=== PATIENT | male | born 1935 | race Caucasian/White ===

== ENCOUNTER 2016-05-03 11:09 | Outpatient (CLI) | payer MEDICARE, OTHER ==
[2015-03-06 11:40] VITALS: BP 110/55
--- NOTE | 2016-05-03 15:02 | Diagnostic Imaging Report ---
[facility] [address] [facility].[address] [address] Report Submission Date: May 03, 2016 11:42:24 AM RADIATION PHYSICIST Patient Study Name: YESI MILLIGAN Date: May 03, 2016 11:20:00 AM RADIATION PHYSICIST Modality Type: CR Gender: M Description: PELVIS : 31 Institution: [facility] Physician MARYELLEN KILLIAN - WAGNER Bilateral hips -two views CLINICAL HISTORY: Fall yesterday. Right groin pain. FINDINGS: Examination right hip in AP and frog-leg lateral views demonstrates impacted transcervical fracture of the right femur. There is mild narrowing of the hip joint with osteophyte formation. Examination of the left hip in AP and frog-leg lateral views demonstrates degenerative changes with slight narrowing of the hip joint and osteophyte formation. There is no evident fracture. IMPRESSION: Impacted transcervical fracture of the right femur. Degenerative changes in the hips. Electronically signed on May 03, 2016 11:42:24 AM RADIATION PHYSICIST by: Bob PEREZ
== END 2016-05-03 11:10 ==
LOC: RAD 11:09
PROVIDERS: ATTEND Family Medicine
DX: R10.30 Lower abdominal pain, unspecified (principal)
CPT/HCPCS: 73521

== ENCOUNTER 2016-07-11 10:10 | Inpatient (IN) | payer MEDICARE, OTHER ==
[2016-07-11 16:09] VITALS: BMI 27.9
--- NOTE | 2016-07-11 17:47 | History and Physical Report ---
History of Present Illnes - History of Present Illness Reason for Visit: Right femur fracture History of Present Illness: This is an 80 year old male admitted for skilled stay after a fall outside his home with a resultant right femur fracture. Had had an ORIF by Dr. Hutchison and was originally transferred to the [facility] for therapy, but he was discharge when he says his thought he would be fine at home. He has been having therapy at [facility] and they thought that he needed more therapy as he was not making progress with the therapy he could attend as an outpatient and recommended that he come in for inpatient therapy. 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 - Past Surgical History Past Surgical History: CABG, Cataract Removal, Other (Right MCA lysis (TPA), ORIF right femur) - Past Social History Smoke: No Alcohol: None Drugs: None Lives: With Family ( Ginny), Other (5 children, only one lives locally) - Health Maintenance Health Maintenance: Cholesterol Influenza Vaccine: Current for this Influenza Season Pneumonia Vaccine: Yes (Two years ago) Resuscitation Status: Resusciation Status Resuscitation Status Do Not Resuscitate - Unable to Obtain History Unable to Obtain: No Review of Systems - Review of Systems Constitutional: negative: Fever, Chills Eyes: pain (right femur, improving) ENT: negative: Ear Pain, Ear Discharge, Nose Pain Respiratory: negative: Cough Cardiovascular: negative: Chest Pain Gastrointestinal: negative: Nausea, Vomiting Genitourinary: negative: Dysuria Musculoskeletal: negative: Neck Pain Skin: negative: Rash Neurological: Weakness, Incoordination - Medications/Allergies Allergies/Adverse Reactions: Allergies Allergy/AdvReac Type Severity Reaction Status Date / Time No Known Allergies Allergy Verified 03/06/15 10:52 Exam - Exam Vital Signs: Vital Signs (72 hours) 07/11/16 07/11/16 11:53 15:53 Temperature 97.5 F L 97.7 F Pulse Rate [ 51 L 55 L Right] Respiratory 16 16 Rate Blood Pressure 106/59 110/70 [Left Arm] O2 Sat by Pulse 95 96 Oximetry General: Alert, Oriented to Person, Oriented to Place, Oriented to Time, Cooperative, No acute distress HEENT: Atraumatic, PERRLA, EOMI, Mouth Mucous membr. moist/[place] Neck: Stridor, Rigidity Lungs: Clear to auscultation, Normal air movement Cardiovascular: Irregularly Irregular Murmur: No: Systolic Murmur Abdomen: Soft Genitourinary: No: Right Inguinal Hernia, Left Inguinal Hernia Male Genitourinary: No: Scrotal Edema Female Genitourinary: No: Other Integumentary: Normal, [place], Warm Extremities: Other Neurological: Left Sided Weakness Psych/Mental Status: Mental status NL Assessment/Plan - Assessment/Plan (1) Right femoral fracture Status: Acute Current Visit: Yes Qualifiers: Encounter type: subsequent encounter Femur location: shaft Fracture type : closed Fracture morphology: other fracture Fracture healing: with routine healing Qualified Code(s): S72.391D - Other fracture of shaft of right femur, subsequent encounter for closed fracture with routine healing Assessment: PT/OT (2) Atrial fibrillation Status: Acute Current Visit: Yes Assessment: Chronic, on Eliquis (3) CAD (coronary artery disease) Status: Acute Current Visit: Yes Qualifiers: Coronary Disease-Associated Artery/Lesion type: bypass graft [place] vs. transplanted heart: [place] heart Associated angina: without angina Qualified Code(s): I25.810 - Atherosclerosis of coronary artery bypass graft(s) without angina pectoris Assessment: No current ischemia (4) BPH (benign prostatic hyperplasia) Status: Acute Current Visit: Yes Assessment: Stable on Flomax (5) Constipation Status: Acute Current Visit: Yes Assessment: Continue Miralax (6) Hypertension Status: Acute Current Visit: Yes (7) Hyperlipidemia Status: Acute Current Visit: Yes Qualifiers: Hyperlipidemia type: pure hypercholesterolemia Qualified Code(s): E78.00 - Pure hypercholesterolemia, unspecified; E78.0 - Pure hypercholesterolemia Assessment: Continue Atorvastatin VTE Assessment - RISK FACTOR SCORE VTE RISK FACTOR SCORES: AGE OVER 60 YEARS, ANTICIPATED BED CONFINEMENT OR IMMOBILIZATION > 24 HOURS - RISK VTE MODERATE RISK: SCORE OF 2 (RISK PROXIMAL DVT 2-4%) PROPHYAXIS NEEDED (On Eliquis/LUNA hose)
[2016-07-11] MEDS ORDERED: NITROGLYCERIN 0.4 MG TAB.SUBL SL PRN (19:14)
[2016-07-11] MEDS ORDERED: DOCUSATE SODIUM 100 MG CAPSULE PO PRN (19:14)
[2016-07-11] MEDS: APIXABAN 2.5 MG TABLET PO SCH (20:03)
[2016-07-11] MEDS: GABAPENTIN 300 MG CAPSULE PO SCH (20:04)
[2016-07-11] MEDS: ATORVASTATIN CALCIUM 80 MG TABLET PO SCH (20:04)
[2016-07-11] MEDS: HYDROcodone /APAP 5/325 1 EACH TABLET PO PRN (20:05)
[2016-07-11] MEDS: FINASTERIDE 5 MG TABLET PO SCH (20:05)
[2016-07-11] MEDS: PATIENT OWN MED 1 EACH EACH OP SCH (20:05)
[2016-07-12 06:50] LABS: EOSINOPHILS % 6.5 % (0.0-6.8); MEAN CORPUSCULAR HEMOGLOBIN 31.6 pg (28.0-34.0); MEAN CORPUSCULAR VOLUME 94.3 fl (80.0-100.0); MONOCYTES % 7.3 % (0.0-11.0); NEUTROPHILS # 2.8 # k/uL (1.4-7.7)
[2016-07-12 07:22] LABS: eGFR (African) > 60; eGFR (Non-African) > 60
[2016-07-12] MEDS: DILTIAZEM HCL 120 MG CAP.ER.24H PO SCH (09:21)
[2016-07-12] MEDS: LORATADINE 10 MG TABLET PO SCH (09:21)
[2016-07-12] MEDS: CYANOCOBALAMIN 1,000 MCG TABLET PO SCH (09:22)
[2016-07-12] MEDS: FLUTICASONE PROPIONATE 120 SPRAY/16 GR BOTTLE NS SCH (09:22)
[2016-07-12] MEDS: GABAPENTIN 300 MG CAPSULE PO SCH ×2 (09:22→20:15)
[2016-07-12] MEDS: APIXABAN 2.5 MG TABLET PO SCH ×2 (09:22→20:15)
[2016-07-12] MEDS: BISOPROLOL 5 MG PO SCH (09:23)
[2016-07-12] MEDS: PATIENT OWN MED 1 EACH EACH OP SCH ×2 (09:23→20:21)
[2016-07-12] MEDS: CHOLECALCIFEROL 1,000 UNIT TABLET PO SCH (09:23)
[2016-07-12] MEDS: POLYETHYLENE GLYCOL 3350 17 GM POWD.PACK PO SCH (12:43)
[2016-07-12] MEDS: TAMSULOSIN HCL 0.4 MG CAP.ER.24H PO SCH (18:38)
[2016-07-12] MEDS: ATORVASTATIN CALCIUM 80 MG TABLET PO SCH (20:15)
[2016-07-12] MEDS: FINASTERIDE 5 MG TABLET PO SCH (20:15)
[2016-07-12] MEDS: HYDROcodone /APAP 5/325 1 EACH TABLET PO PRN (20:19)
[2016-07-13] MEDS: APIXABAN 2.5 MG TABLET PO SCH ×2 (08:52→19:40)
[2016-07-13] MEDS: CHOLECALCIFEROL 1,000 UNIT TABLET PO SCH (08:52)
[2016-07-13] MEDS: CYANOCOBALAMIN 1,000 MCG TABLET PO SCH (08:53)
[2016-07-13] MEDS: DILTIAZEM HCL 120 MG CAP.ER.24H PO SCH (08:53)
[2016-07-13] MEDS: GABAPENTIN 300 MG CAPSULE PO SCH ×2 (08:53→19:41)
[2016-07-13] MEDS: FLUTICASONE PROPIONATE 120 SPRAY/16 GR BOTTLE NS SCH (08:53)
[2016-07-13] MEDS: PATIENT OWN MED 1 EACH EACH OP SCH ×2 (08:54→19:41)
[2016-07-13] MEDS: BISOPROLOL 5 MG PO SCH (08:58)
[2016-07-13] MEDS: LORATADINE 10 MG TABLET PO SCH (08:58)
[2016-07-13] MEDS: HYDROcodone /APAP 5/325 1 EACH TABLET PO PRN (10:30)
[2016-07-13] MEDS: POLYETHYLENE GLYCOL 3350 17 GM POWD.PACK PO SCH (10:45)
[2016-07-13] MEDS: TAMSULOSIN HCL 0.4 MG CAP.ER.24H PO SCH (17:12)
[2016-07-13] MEDS: ATORVASTATIN CALCIUM 80 MG TABLET PO SCH (19:41)
[2016-07-13] MEDS: FINASTERIDE 5 MG TABLET PO SCH (19:41)
[2016-07-14] MEDS: LORATADINE 10 MG TABLET PO SCH (08:09)
[2016-07-14] MEDS: APIXABAN 2.5 MG TABLET PO SCH ×2 (08:09→19:51)
[2016-07-14] MEDS: CHOLECALCIFEROL 1,000 UNIT TABLET PO SCH (08:09)
[2016-07-14] MEDS: CYANOCOBALAMIN 1,000 MCG TABLET PO SCH (08:09)
[2016-07-14] MEDS: DILTIAZEM HCL 120 MG CAP.ER.24H PO SCH (08:09)
[2016-07-14] MEDS: GABAPENTIN 300 MG CAPSULE PO SCH ×2 (08:09→19:52)
[2016-07-14] MEDS: FLUTICASONE PROPIONATE 120 SPRAY/16 GR BOTTLE NS SCH (08:09)
[2016-07-14] MEDS: PATIENT OWN MED 1 EACH EACH OP SCH ×2 (08:10→20:17)
[2016-07-14] MEDS: POLYETHYLENE GLYCOL 3350 17 GM POWD.PACK PO SCH (11:09)
[2016-07-14] MEDS: BISOPROLOL 5 MG PO SCH (12:40)
[2016-07-14] MEDS: TAMSULOSIN HCL 0.4 MG CAP.ER.24H PO SCH (17:19)
[2016-07-14] MEDS: ATORVASTATIN CALCIUM 80 MG TABLET PO SCH (19:51)
[2016-07-14] MEDS: FINASTERIDE 5 MG TABLET PO SCH (19:52)
[2016-07-14] MEDS: HYDROcodone /APAP 5/325 1 EACH TABLET PO PRN (20:55)
[2016-07-15] MEDS: CHOLECALCIFEROL 1,000 UNIT TABLET PO SCH (09:03)
[2016-07-15] MEDS: CYANOCOBALAMIN 1,000 MCG TABLET PO SCH (09:03)
[2016-07-15] MEDS: GABAPENTIN 300 MG CAPSULE PO SCH ×2 (09:03→20:05)
[2016-07-15] MEDS: LORATADINE 10 MG TABLET PO SCH (09:03)
[2016-07-15] MEDS: FLUTICASONE PROPIONATE 120 SPRAY/16 GR BOTTLE NS SCH (09:04)
[2016-07-15] MEDS: APIXABAN 2.5 MG TABLET PO SCH ×2 (09:04→20:06)
[2016-07-15] MEDS: DILTIAZEM HCL 120 MG CAP.ER.24H PO SCH (09:04)
[2016-07-15] MEDS: BISOPROLOL 5 MG PO SCH (09:04)
[2016-07-15] MEDS: PATIENT OWN MED 1 EACH EACH OP SCH ×2 (09:04→20:06)
[2016-07-15] MEDS: POLYETHYLENE GLYCOL 3350 17 GM POWD.PACK PO SCH ×2 (10:14→10:23)
[2016-07-15] MEDS: TAMSULOSIN HCL 0.4 MG CAP.ER.24H PO SCH (17:24)
[2016-07-15] MEDS: ATORVASTATIN CALCIUM 80 MG TABLET PO SCH (20:05)
[2016-07-15] MEDS: HYDROcodone /APAP 5/325 1 EACH TABLET PO PRN (20:05)
[2016-07-15] MEDS: FINASTERIDE 5 MG TABLET PO SCH (20:05)
[2016-07-16] MEDS: CHOLECALCIFEROL 1,000 UNIT TABLET PO SCH (09:32)
[2016-07-16] MEDS: GABAPENTIN 300 MG CAPSULE PO SCH ×2 (09:32→20:16)
[2016-07-16] MEDS: APIXABAN 2.5 MG TABLET PO SCH ×2 (09:33→20:16)
[2016-07-16] MEDS: DILTIAZEM HCL 120 MG CAP.ER.24H PO SCH (09:33)
[2016-07-16] MEDS: FLUTICASONE PROPIONATE 120 SPRAY/16 GR BOTTLE NS SCH (09:33)
[2016-07-16] MEDS: PATIENT OWN MED 1 EACH EACH OP SCH ×2 (09:33→20:17)
[2016-07-16] MEDS: BISOPROLOL 5 MG PO SCH (09:33)
[2016-07-16] MEDS: CYANOCOBALAMIN 1,000 MCG TABLET PO SCH (09:33)
[2016-07-16] MEDS: LORATADINE 10 MG TABLET PO SCH (09:33)
[2016-07-16] MEDS: POLYETHYLENE GLYCOL 3350 17 GM POWD.PACK PO SCH (11:19)
--- NOTE | 2016-07-16 14:50 | Inpatient Progress Note ---
Subjective - Required Recertification Statement I anticipate X number of days because-include discharge plan: 7 - Review of Systems Subjective: I was called by nursing to see patient for a "spell." Patient was walking down the bates when nursing noted sudden weakness and had to sit down. Noted garbled speech. 2 minutes later when I got to patient, speech was normal. Gait was normal. Neuro exam was normal. Facial droop on L. Patient reports he has a h/ o L CVA with resulting L facial droop. He reports spells that come and go with worsening symptoms. He originally had been transferred to SNF at the [facility] after a femur fx. He was doing outpatient therapy until being readmitted to SNF here at [facility]. Therapy reports he had really good days in outpatient but then had spells of getting very weak. They wondered if he was having TIA's. Objective - Exam Vitals and I&O: Vital Signs Temp 98.7 F 07/16/16 09:00 Pulse 80 07/16/16 09:00 Resp 17 07/16/16 09:00 BP 118/58 07/16/16 09:00 Pulse Ox 92 07/16/16 09:00 Intake & Output 07/15/16 07/16/16 07/16/16 23:59 11:59 23:59 Intake Total 840 900 240 Output Total 1200 Balance 840 -300 240 Intake: Oral 840 900 240 Output: Urine 1200 Other: Voiding Method Toilet Toilet General: Alert, Oriented to Person, Oriented to Place, Oriented to Time, Cooperative, No acute distress Lungs: Clear to auscultation, Normal air movement, Speaks full Sentences Cardiovascular: Irregularly Irregular Neurological: Other (L facial droop. Strength 5/5 UE/LE B. [place]om[place] negative. No pronator drift. ) - Results Results: Laboratory Results WBC 5.60 K/ul (4.00-12.00) 07/12/16 06:35 RBC 4.28 M/ul (3.90-5.20) 07/12/16 06:35 Hgb 13.5 g/dL (12.0-18.0) 07/12/16 06:35 Hct 40.3 % (37.0-53.0) 07/12/16 06:35 MCV 94.3 fl (80.0-100.0) 07/12/16 06:35 MCH 31.6 pg (28.0-34.0) 07/12/16 06:35 MCHC 33.5 g/dL (30.0-36.0) 07/12/16 06:35 RDW 13.3 % (11.3-14.3) 07/12/16 06:35 Plt Count 152 K/mm3 (130-400) 07/12/16 06:35 Neut % (Auto) 50.2 % (39.0-79.0) 07/12/16 06:35 Lymph % (Auto) 32.7 % (16.0-50.0) 07/12/16 06:35 [place] % (Auto) 7.3 % (0.0-11.0) 07/12/16 06:35 Eos % (Auto) 6.5 % (0.0-6.8) 07/12/16 06:35 Baso % (Auto) 1.0 (0.0-1.5) 07/12/16 06:35 Neut # 2.8 # k/uL (1.4-7.7) 07/12/16 06:35 Lymph # 1.8 # k/uL (0.6-4.0) 07/12/16 06:35 [place] # 0.4 # k/uL (0.0-0.9) 07/12/16 06:35 Eos # 0.4 # k/uL (0.0-0.6) 07/12/16 06:35 Baso # 0.0 # k/uL (0.0-0.5) 07/12/16 06:35 Reactive Lymphs % 2.3 % (0.0-5.0) 07/12/16 06:35 Reactive Lymphs # 0.1 # k/uL (0.0-0.8) 07/12/16 06:35 Sodium 140 mmol/L (136-145) 07/12/16 06:35 Potassium 4.2 mmol/L (3.5-5.0) 07/12/16 06:35 Chloride 108 mmol/L (98-110) 07/12/16 06:35 Carbon Dioxide 30 mmol/L (20-32) 07/12/16 06:35 BUN 16 mg/dL (10-26) 07/12/16 06:35 Creatinine 0.8 mg/dL (0.4-1.5) 07/12/16 06:35 Estimated Creat Clear 84 07/12/16 06:35 Est GFR ( Amer) > 60 (60-) 07/12/16 06:35 Est GFR (Non-Af Amer) > 60 (60-) 07/12/16 06:35 Glucose 93 mg/dL (70-99) 07/12/16 06:35 Calcium 9.4 mg/dL (8.5-10.5) 07/12/16 06:35 Total Bilirubin 0.6 mg/dL (0.2-1.2) 07/12/16 06:35 AST 16 U/L (0-41) 07/12/16 06:35 ALT 9 U/L (0-45) 07/12/16 06:35 Alkaline Phosphatase 174 U/L (46-116) H 07/12/16 06:35 Total Protein 6.2 g/dL (6.0-8.5) 07/12/16 06:35 Albumin 3.8 g/dL (3.0-5.5) 07/12/16 06:35 Assessment/Plan - Assessment/Plan (1) Slurred speech Status: Acute Current Visit: Yes Plan: Resolved. Will talk to primary team to see if he has had TIA work up done. He is on Eliquis for Afib. May need to consider ASA. Watch closely.
[2016-07-16] MEDS: TAMSULOSIN HCL 0.4 MG CAP.ER.24H PO SCH (17:26)
[2016-07-16] MEDS: FINASTERIDE 5 MG TABLET PO SCH (20:16)
[2016-07-16] MEDS: HYDROcodone /APAP 5/325 1 EACH TABLET PO PRN (20:16)
[2016-07-16] MEDS: ATORVASTATIN CALCIUM 80 MG TABLET PO SCH (20:16)
[2016-07-17] MEDS: FLUTICASONE PROPIONATE 120 SPRAY/16 GR BOTTLE NS SCH (09:11)
[2016-07-17] MEDS: APIXABAN 2.5 MG TABLET PO SCH ×2 (09:11→20:56)
[2016-07-17] MEDS: LORATADINE 10 MG TABLET PO SCH (09:11)
[2016-07-17] MEDS: CHOLECALCIFEROL 1,000 UNIT TABLET PO SCH (09:12)
[2016-07-17] MEDS: GABAPENTIN 300 MG CAPSULE PO SCH ×2 (09:12→20:56)
[2016-07-17] MEDS: PATIENT OWN MED 1 EACH EACH OP SCH ×2 (09:12→20:57)
[2016-07-17] MEDS: CYANOCOBALAMIN 1,000 MCG TABLET PO SCH (09:12)
[2016-07-17] MEDS: DILTIAZEM HCL 120 MG CAP.ER.24H PO SCH (09:15)
[2016-07-17] MEDS: BISOPROLOL 5 MG PO SCH (09:16)
[2016-07-17] MEDS: POLYETHYLENE GLYCOL 3350 17 GM POWD.PACK PO SCH (10:53)
[2016-07-17] MEDS: TAMSULOSIN HCL 0.4 MG CAP.ER.24H PO SCH (18:09)
[2016-07-17] MEDS: HYDROcodone /APAP 5/325 1 EACH TABLET PO PRN (20:56)
[2016-07-17] MEDS: ATORVASTATIN CALCIUM 80 MG TABLET PO SCH (20:58)
[2016-07-17] MEDS: FINASTERIDE 5 MG TABLET PO SCH (21:00)
[2016-07-18] MEDS: DILTIAZEM HCL 120 MG CAP.ER.24H PO SCH (09:18)
[2016-07-18] MEDS: PATIENT OWN MED 1 EACH EACH OP SCH ×2 (09:19→20:19)
[2016-07-18] MEDS: GABAPENTIN 300 MG CAPSULE PO SCH ×2 (09:19→20:19)
[2016-07-18] MEDS: APIXABAN 2.5 MG TABLET PO SCH ×2 (09:19→20:19)
[2016-07-18] MEDS: LORATADINE 10 MG TABLET PO SCH (09:20)
[2016-07-18] MEDS: CYANOCOBALAMIN 1,000 MCG TABLET PO SCH (09:20)
[2016-07-18] MEDS: FLUTICASONE PROPIONATE 120 SPRAY/16 GR BOTTLE NS SCH (09:22)
[2016-07-18] MEDS: BISOPROLOL 5 MG PO SCH (09:22)
[2016-07-18] MEDS: CHOLECALCIFEROL 1,000 UNIT TABLET PO SCH (09:59)
[2016-07-18] MEDS: POLYETHYLENE GLYCOL 3350 17 GM POWD.PACK PO SCH (11:10)
[2016-07-18] MEDS: TAMSULOSIN HCL 0.4 MG CAP.ER.24H PO SCH (17:30)
[2016-07-18] MEDS: HYDROcodone /APAP 5/325 1 EACH TABLET PO PRN (20:18)
[2016-07-18] MEDS: FINASTERIDE 5 MG TABLET PO SCH (20:19)
[2016-07-18] MEDS: ATORVASTATIN CALCIUM 80 MG TABLET PO SCH (20:19)
[2016-07-19] MEDS: DILTIAZEM HCL 120 MG CAP.ER.24H PO SCH (08:08)
[2016-07-19] MEDS: CHOLECALCIFEROL 1,000 UNIT TABLET PO SCH (08:08)
[2016-07-19] MEDS: FLUTICASONE PROPIONATE 120 SPRAY/16 GR BOTTLE NS SCH (08:09)
[2016-07-19] MEDS: BISOPROLOL 5 MG PO SCH (08:09)
[2016-07-19] MEDS: GABAPENTIN 300 MG CAPSULE PO SCH ×2 (08:09→19:44)
[2016-07-19] MEDS: APIXABAN 2.5 MG TABLET PO SCH ×2 (08:09→19:44)
[2016-07-19] MEDS: PATIENT OWN MED 1 EACH EACH OP SCH ×2 (08:09→19:44)
[2016-07-19] MEDS: LORATADINE 10 MG TABLET PO SCH (08:09)
[2016-07-19] MEDS: CYANOCOBALAMIN 1,000 MCG TABLET PO SCH (08:17)
[2016-07-19] MEDS: POLYETHYLENE GLYCOL 3350 17 GM POWD.PACK PO SCH (10:21)
[2016-07-19] MEDS: TAMSULOSIN HCL 0.4 MG CAP.ER.24H PO SCH (17:01)
[2016-07-19] MEDS: FINASTERIDE 5 MG TABLET PO SCH (19:44)
[2016-07-19] MEDS: ATORVASTATIN CALCIUM 80 MG TABLET PO SCH (19:45)
[2016-07-19] MEDS: HYDROcodone /APAP 5/325 1 EACH TABLET PO PRN (21:21)
[2016-07-20] MEDS: APIXABAN 2.5 MG TABLET PO SCH ×2 (08:26→19:19)
[2016-07-20] MEDS: FLUTICASONE PROPIONATE 120 SPRAY/16 GR BOTTLE NS SCH (08:26)
[2016-07-20] MEDS: LORATADINE 10 MG TABLET PO SCH (08:26)
[2016-07-20] MEDS: GABAPENTIN 300 MG CAPSULE PO SCH ×2 (08:26→19:20)
[2016-07-20] MEDS: CHOLECALCIFEROL 1,000 UNIT TABLET PO SCH (08:29)
[2016-07-20] MEDS: PATIENT OWN MED 1 EACH EACH OP SCH ×2 (08:29→19:20)
[2016-07-20] MEDS: DILTIAZEM HCL 120 MG CAP.ER.24H PO SCH (10:22)
[2016-07-20] MEDS: BISOPROLOL 5 MG PO SCH (10:26)
[2016-07-20] MEDS: CYANOCOBALAMIN 1,000 MCG TABLET PO SCH (10:29)
[2016-07-20] MEDS: POLYETHYLENE GLYCOL 3350 17 GM POWD.PACK PO SCH (11:43)
[2016-07-20] MEDS: TAMSULOSIN HCL 0.4 MG CAP.ER.24H PO SCH (17:51)
[2016-07-20] MEDS: ATORVASTATIN CALCIUM 80 MG TABLET PO SCH (19:19)
[2016-07-20] MEDS: FINASTERIDE 5 MG TABLET PO SCH (19:19)
[2016-07-20] MEDS: HYDROcodone /APAP 5/325 1 EACH TABLET PO PRN (19:24)
[2016-07-21] MEDS: APIXABAN 2.5 MG TABLET PO SCH ×2 (08:44→20:11)
[2016-07-21] MEDS: FLUTICASONE PROPIONATE 120 SPRAY/16 GR BOTTLE NS SCH (08:44)
[2016-07-21] MEDS: LORATADINE 10 MG TABLET PO SCH (08:44)
[2016-07-21] MEDS: DILTIAZEM HCL 120 MG CAP.ER.24H PO SCH (08:44)
[2016-07-21] MEDS: GABAPENTIN 300 MG CAPSULE PO SCH ×2 (08:45→20:11)
[2016-07-21] MEDS: BISOPROLOL 5 MG PO SCH (08:48)
[2016-07-21] MEDS: PATIENT OWN MED 1 EACH EACH OP SCH ×2 (08:49→20:12)
[2016-07-21] MEDS: CHOLECALCIFEROL 1,000 UNIT TABLET PO SCH (08:49)
[2016-07-21] MEDS: CYANOCOBALAMIN 1,000 MCG TABLET PO SCH (08:49)
[2016-07-21] MEDS: POLYETHYLENE GLYCOL 3350 17 GM POWD.PACK PO SCH (11:25)
[2016-07-21] MEDS: TAMSULOSIN HCL 0.4 MG CAP.ER.24H PO SCH (17:04)
[2016-07-21] MEDS: ATORVASTATIN CALCIUM 80 MG TABLET PO SCH (20:11)
[2016-07-21] MEDS: HYDROcodone /APAP 5/325 1 EACH TABLET PO PRN (20:12)
[2016-07-21] MEDS: FINASTERIDE 5 MG TABLET PO SCH (20:12)
[2016-07-22] MEDS: BISOPROLOL 5 MG PO SCH (09:23)
[2016-07-22] MEDS: DILTIAZEM HCL 120 MG CAP.ER.24H PO SCH (09:24)
[2016-07-22] MEDS: LORATADINE 10 MG TABLET PO SCH (09:25)
[2016-07-22] MEDS: FLUTICASONE PROPIONATE 120 SPRAY/16 GR BOTTLE NS SCH (09:26)
[2016-07-22] MEDS: APIXABAN 2.5 MG TABLET PO SCH ×2 (09:26→19:57)
[2016-07-22] MEDS: PATIENT OWN MED 1 EACH EACH OP SCH ×2 (09:27→19:57)
[2016-07-22] MEDS: GABAPENTIN 300 MG CAPSULE PO SCH ×2 (09:27→19:57)
[2016-07-22] MEDS: CYANOCOBALAMIN 1,000 MCG TABLET PO SCH (09:28)
[2016-07-22] MEDS: CHOLECALCIFEROL 1,000 UNIT TABLET PO SCH (09:28)
[2016-07-22] MEDS: POLYETHYLENE GLYCOL 3350 17 GM POWD.PACK PO SCH (10:54)
[2016-07-22] MEDS: TAMSULOSIN HCL 0.4 MG CAP.ER.24H PO SCH (17:29)
[2016-07-22] MEDS: HYDROcodone /APAP 5/325 1 EACH TABLET PO PRN (19:57)
[2016-07-22] MEDS: ATORVASTATIN CALCIUM 80 MG TABLET PO SCH (19:58)
[2016-07-22] MEDS: FINASTERIDE 5 MG TABLET PO SCH (19:58)
[2016-07-23] MEDS: FLUTICASONE PROPIONATE 120 SPRAY/16 GR BOTTLE NS SCH (08:04)
[2016-07-23] MEDS: LORATADINE 10 MG TABLET PO SCH (08:05)
[2016-07-23] MEDS: DILTIAZEM HCL 120 MG CAP.ER.24H PO SCH (08:05)
[2016-07-23] MEDS: GABAPENTIN 300 MG CAPSULE PO SCH ×2 (08:06→20:10)
[2016-07-23] MEDS: APIXABAN 2.5 MG TABLET PO SCH ×2 (08:06→20:10)
[2016-07-23] MEDS: BISOPROLOL 5 MG PO SCH (08:07)
[2016-07-23] MEDS: PATIENT OWN MED 1 EACH EACH OP SCH ×2 (08:09→20:10)
[2016-07-23] MEDS: CHOLECALCIFEROL 1,000 UNIT TABLET PO SCH (08:09)
[2016-07-23] MEDS: CYANOCOBALAMIN 1,000 MCG TABLET PO SCH (08:13)
[2016-07-23] MEDS: POLYETHYLENE GLYCOL 3350 17 GM POWD.PACK PO SCH (12:00)
[2016-07-23] MEDS: TAMSULOSIN HCL 0.4 MG CAP.ER.24H PO SCH (17:52)
[2016-07-23] MEDS: HYDROcodone /APAP 5/325 1 EACH TABLET PO PRN (20:09)
[2016-07-23] MEDS: FINASTERIDE 5 MG TABLET PO SCH (20:10)
[2016-07-23] MEDS: ATORVASTATIN CALCIUM 80 MG TABLET PO SCH (20:10)
[2016-07-24] MEDS: FLUTICASONE PROPIONATE 120 SPRAY/16 GR BOTTLE NS SCH (08:04)
[2016-07-24] MEDS: DILTIAZEM HCL 120 MG CAP.ER.24H PO SCH (08:04)
[2016-07-24] MEDS: GABAPENTIN 300 MG CAPSULE PO SCH ×2 (08:04→20:23)
[2016-07-24] MEDS: LORATADINE 10 MG TABLET PO SCH (08:04)
[2016-07-24] MEDS: APIXABAN 2.5 MG TABLET PO SCH ×2 (08:04→20:22)
[2016-07-24] MEDS: PATIENT OWN MED 1 EACH EACH OP SCH ×2 (08:04→20:23)
[2016-07-24] MEDS: BISOPROLOL 5 MG PO SCH (08:05)
[2016-07-24] MEDS: CYANOCOBALAMIN 1,000 MCG TABLET PO SCH (08:05)
[2016-07-24] MEDS: CHOLECALCIFEROL 1,000 UNIT TABLET PO SCH (08:05)
[2016-07-24] MEDS: POLYETHYLENE GLYCOL 3350 17 GM POWD.PACK PO SCH (10:37)
[2016-07-24] MEDS: TAMSULOSIN HCL 0.4 MG CAP.ER.24H PO SCH (18:26)
[2016-07-24] MEDS: ATORVASTATIN CALCIUM 80 MG TABLET PO SCH (20:22)
[2016-07-24] MEDS: FINASTERIDE 5 MG TABLET PO SCH (20:23)
[2016-07-25] MEDS: LORATADINE 10 MG TABLET PO SCH (08:05)
[2016-07-25] MEDS: APIXABAN 2.5 MG TABLET PO SCH ×2 (08:05→20:12)
[2016-07-25] MEDS: CYANOCOBALAMIN 1,000 MCG TABLET PO SCH (08:05)
[2016-07-25] MEDS: CHOLECALCIFEROL 1,000 UNIT TABLET PO SCH (08:05)
[2016-07-25] MEDS: DILTIAZEM HCL 120 MG CAP.ER.24H PO SCH (08:05)
[2016-07-25] MEDS: GABAPENTIN 300 MG CAPSULE PO SCH ×2 (08:05→20:12)
[2016-07-25] MEDS: PATIENT OWN MED 1 EACH EACH OP SCH ×2 (08:06→20:12)
[2016-07-25] MEDS: FLUTICASONE PROPIONATE 120 SPRAY/16 GR BOTTLE NS SCH (08:06)
[2016-07-25] MEDS: BISOPROLOL 5 MG PO SCH (08:07)
[2016-07-25] MEDS: POLYETHYLENE GLYCOL 3350 17 GM POWD.PACK PO SCH (11:03)
[2016-07-25] MEDS: TAMSULOSIN HCL 0.4 MG CAP.ER.24H PO SCH (17:53)
[2016-07-25] MEDS: ATORVASTATIN CALCIUM 80 MG TABLET PO SCH (20:12)
[2016-07-25] MEDS: FINASTERIDE 5 MG TABLET PO SCH (20:12)
[2016-07-26] MEDS: GABAPENTIN 300 MG CAPSULE PO SCH ×2 (08:30→19:14)
[2016-07-26] MEDS: LORATADINE 10 MG TABLET PO SCH (08:30)
[2016-07-26] MEDS: APIXABAN 2.5 MG TABLET PO SCH ×2 (08:30→19:14)
[2016-07-26] MEDS: DILTIAZEM HCL 120 MG CAP.ER.24H PO SCH (08:30)
[2016-07-26] MEDS: CYANOCOBALAMIN 1,000 MCG TABLET PO SCH (08:30)
[2016-07-26] MEDS: CHOLECALCIFEROL 1,000 UNIT TABLET PO SCH (08:30)
[2016-07-26] MEDS: BISOPROLOL 5 MG PO SCH (08:31)
[2016-07-26] MEDS: FLUTICASONE PROPIONATE 120 SPRAY/16 GR BOTTLE NS SCH (08:31)
[2016-07-26] MEDS: PATIENT OWN MED 1 EACH EACH OP SCH ×2 (08:31→19:15)
[2016-07-26] MEDS: POLYETHYLENE GLYCOL 3350 17 GM POWD.PACK PO SCH (11:16)
[2016-07-26] MEDS: TAMSULOSIN HCL 0.4 MG CAP.ER.24H PO SCH (17:29)
[2016-07-26] MEDS: FINASTERIDE 5 MG TABLET PO SCH (19:14)
[2016-07-26] MEDS: ATORVASTATIN CALCIUM 80 MG TABLET PO SCH (19:15)
[2016-07-27] MEDS: LORATADINE 10 MG TABLET PO SCH (08:13)
[2016-07-27] MEDS: APIXABAN 2.5 MG TABLET PO SCH (08:13)
[2016-07-27] MEDS: FLUTICASONE PROPIONATE 120 SPRAY/16 GR BOTTLE NS SCH (08:13)
[2016-07-27] MEDS: DILTIAZEM HCL 120 MG CAP.ER.24H PO SCH (08:13)
[2016-07-27] MEDS: BISOPROLOL 5 MG PO SCH (08:14)
[2016-07-27] MEDS: PATIENT OWN MED 1 EACH EACH OP SCH (08:14)
[2016-07-27] MEDS: CYANOCOBALAMIN 1,000 MCG TABLET PO SCH (08:14)
[2016-07-27] MEDS: GABAPENTIN 300 MG CAPSULE PO SCH (08:14)
[2016-07-27] MEDS: CHOLECALCIFEROL 1,000 UNIT TABLET PO SCH (08:14)
[2016-07-27 09:00] VITALS: BP 109/64
[2016-07-27] MEDS: POLYETHYLENE GLYCOL 3350 17 GM POWD.PACK PO SCH (10:52)
--- NOTE | 2016-07-27 19:46 | Discharge Summary ---
Discharge Summary - Discharge Sumary History of Present Illness: This is an 80 year old male admitted for skilled stay after a fall outside his home with a resultant right femur fracture. Had had an ORIF by Dr. Hutchison and was originally transferred to the [facility] for therapy, but he was discharge when he says his thought he would be fine at home. He has been having therapy at [facility] and they thought that he needed more therapy as he was not making progress with the therapy he could attend as an outpatient and recommended that he come in for inpatient therapy. Condition at Discharge: Stable Home Medications: Ambulatory Orders Medication Instructions Recorded Apixaban [Eliquis] 5 mg PO BID 07/26/16 Atorvastatin Calcium [Lipitor] 80 mg PO HS 07/26/16 Cholecalciferol [Vitamin D-3] 5,000 unit PO DAILY 07/26/16 Cyanocobalamin [Vitamin B-12] 1,000 mcg PO DAILY 07/26/16 Diltiazem HCl [Cardizem CD] 120 mg PO DAILY 07/26/16 Docusate Sodium [Colace] 100 mg PO DAILY 07/26/16 Finasteride [Proscar] 5 mg PO HS 07/26/16 Fluticasone Propionate [Flonase] 1 spray NS D 07/26/16 Gabapentin [Neurontin] 300 mg PO BID 07/26/16 Loratadine [Claritin] 10 mg PO D 07/26/16 Nebivolol HCl [Bystolic] 5 mg PO D 07/26/16 Nitroglycerin [Nitroquick] 0.4 mg SL Q5M PRN 07/26/16 Polyethylene Glycol 3350 [Miralax] 17 gm PO 1100 07/26/16 Tamsulosin HCl [Flomax] 0.4 mg PO 1800 07/26/16 Consultations this Visit: None Procedures this Visit: None Allergies/Adverse Reactions: Allergies Allergy/AdvReac Type Severity Reaction Status Date / Time No Known Allergies Allergy Verified 03/06/15 10:52 Discharge Summary: Patient admitted to SNF with R femur fx after failing outpatient therapy. He did well with PT/OT. Had a spell of 10 sec of mild slurred speech and weakness while walking that resolved with 30 sec of rest. Possible TIA but patient anticoagulated with eliquis for afib. Discharged home in stable condition. Hospital Course: Discharge DX. R femur fx. CAD. HTN. h/o CVA. Afib. Disposition - home
== END 2016-07-27 10:45 | disposition home or self-care (01) | DRG 561 ==
LOC: SOUTH 10:10
PROVIDERS: ADMIT Family Medicine; ATTEND Family Medicine
DX: S72.91XD Unspecified fracture of right femur, subsequent encounter for closed fracture with routine healing (principal); I25.10 Atherosclerotic heart disease of native coronary artery without angina pectoris; I10 Essential (primary) hypertension; I48.91 Unspecified atrial fibrillation
CPT/HCPCS: 36415; 80053; 85025; 97110; 97112; 97116; 97162; 97165; 97530; 97535; A9270

== ENCOUNTER 2016-10-26 11:30 | Outpatient (CLI) | payer MEDICARE, OTHER ==
--- NOTE | 2016-10-26 15:17 | Diagnostic Imaging Report ---
MARYELLEN KILLIAN - WAGNER [facility] [address] [facility] [address], [place]. [address] Report Submission Date: Oct 26, 2016 12:37:34 PM CDT Patient Study Name: YESI MILLIGAN Date: Oct 26, 2016 11:42:33 AM CDT Modality Type: CR Gender: M Description: CHEST : 31 Institution: [facility] Physician: MARYELLEN KILLIAN Examination: PA and lateral chest. History: Evaluate lung perez. Comparison exam: None available Findings: PA lateral chest demonstrate a normal cardiac and mediastinal silhouette. Sternotomy wires . Mild parenchymal haziness right inferior hilum. No effusion. No blunting of the costophrenic margins. Osseous structures are appropriate for age. Impression: Mild right inferior hilar infiltrate. No effusion. Electronically signed on Oct 26, 2016 12:37:34 PM CDT by: Kumar PEREZ
== END 2016-10-26 11:32 ==
LOC: RAD 11:30
PROVIDERS: ATTEND Family Medicine
DX: R05 Cough (principal)
CPT/HCPCS: 71020

== ENCOUNTER 2017-08-12 11:59 | Emergency (ER) | payer MEDICARE, OTHER ==
--- NOTE | 2017-08-12 12:50 | Diagnostic Imaging Report ---
YESI TOLENTINO [facility] [address] [facility] [address] [address] Report Submission Date: Aug 12, 2017 12:48:17 PM CDT Patient Study Name: YESI MILLIGAN Date: Aug 12, 2017 12:12:01 PM CDT Modality Type: DX Gender: M Description: CHEST : 31 Institution: [facility] Physician: YESI TOLENTINO Chest and bilateral ribs Clinical history fall rib pain PA chest and 2 views of both ribs Findings: There is cardiomegaly and findings of median sternotomy. Right costophrenic angle blunting is present. No rib fractures identified. The aorta is tortuous and calcified. Thoracic spondylosis and shoulder arthritis Impression: No acute rib pathology Findings of coronary bypass grafting. Cardiomegaly and aortic atherosclerosis Electronically signed on Aug 12, 2017 12:48:17 PM CDT by: Virgilio PEREZ
--- NOTE | 2017-08-12 12:52 | ED Physician Documentation ---
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 Pt uses a wheelchair, but was standing, looking out a window when he fell. Pt has hx hip fx and has an unsteady gate. Pt "hurts all over." He has some soreness of his R chest, but is able to take a breath. No neck pain. 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.) Surgeries/Procedures: other (hip surgery) Allergies/Adverse Reactions: Allergies Allergy/AdvReac Type Severity Reaction Status Date / Time No Known Allergies Allergy Verified 08/12/17 12:12 Home Medications: Ambulatory Orders Medication Instructions Recorded Apixaban [Eliquis] 5 mg PO BID 07/26/16 Atorvastatin Calcium [Lipitor] 80 mg PO HS 07/26/16 Cholecalciferol [Vitamin D-3] 5,000 unit PO DAILY 07/26/16 Cyanocobalamin [Vitamin B-12] 1,000 mcg PO DAILY 07/26/16 Diltiazem HCl [Cardizem CD] 120 mg PO DAILY 07/26/16 Docusate Sodium [Colace] 100 mg PO DAILY 07/26/16 Finasteride [Proscar] 5 mg PO HS 07/26/16 Fluticasone Propionate [Flonase] 1 spray NS D 07/26/16 Gabapentin [Neurontin] 300 mg PO BID 07/26/16 Loratadine [Claritin] 10 mg PO D 07/26/16 Nebivolol HCl [Bystolic] 5 mg PO D 07/26/16 Nitroglycerin [Nitroquick] 0.4 mg SL Q5M PRN 07/26/16 Polyethylene Glycol 3350 [Miralax] 17 gm PO 1100 07/26/16 Tamsulosin HCl [Flomax] 0.4 mg PO 1800 07/26/16 - SOCIAL HX Smoking History: non-smoker - FAMILY HX Family History: No - VITAL SIGNS Vital Signs: Vital Signs Temp Pulse Resp BP Pulse Ox 97.1 F L 58 L 18 131/48 98 08/12/17 11:59 08/12/17 11:59 08/12/17 11:59 08/12/17 11:59 08/12/17 11:59 - REVIEWED ASSESSMENTS Nursing Assessment Reviewed: Yes Vitals Reviewed: Yes Progress - Progress Progress: X-ray R ribs/chest: Impression: No acute rib pathology. ED Results Lab/Radiology - Orders Orders: ED Orders Category Date Time Status RIBS UNILATERAL W/ PA CHEST [RAD] Stat Exams 08/12/17 Completed General Adult Physical Exam - PHYSICAL EXAM GENERAL APPEARANCE: mild distress EENT: eye inspection normal NECK: normal inspection, supple RESPIRATORY: no resp distress, breath sounds normal, other (mild tenderness R chest wall) CVS: reg rate & rhythm, heart sounds normal BACK: normal inspection, no CVA tenderness SKIN: warm/dry, normal color EXTREMITIES: non-tender, normal range of motion, no evidence of injury NEURO: oriented X3, motor nml (baseline), sensation nml Discharge Clincal Impression: Fall, R chest wall soreness Referrals: Babatudne Howell MD [Primary Care Provider] - Condition: Good Disposition: 01 HOME, SELF-CARE Decision to Admit: NO Decision Time: 13:00
[2017-08-12 13:22] VITALS: BP 125/58
== END 2017-08-12 13:06 | disposition home or self-care (01) ==
LOC: ED 11:59
DX: R07.89 Other chest pain (principal); W19.XXXA Unspecified fall, initial encounter; Z91.81 History of falling; Y92.9 Unspecified place or not applicable
CPT/HCPCS: 71101; 99283